=== PATIENT | male | born 1960 | race American Indian/Alaskan Native ===

== ENCOUNTER → 2017-08-15 | Outpatient (REF) | payer MEDICAID ==
[2017-08-15 20:24] LABS: COMPLEMENT C3 124 MG/DL (90-180); COMPLEMENT C4 23.9 MG/DL (10-40)
[2017-08-15 20:53] LABS: BACTERIA, URINE NONE SEEN; SQUAMOUS EPITHELIAL CELL URINE NONE SEEN /hpf (SMALL AMT); TRANSITIONAL EPI CELLS, URINE SMALL AMOUNT /hpf
[2017-08-15 20:54] LABS: MICROSCOPIC EXAM PERFORMED
[2017-08-17 13:05] LABS: HEPATITIS B SURFACE ANTIBODY NEGATIVE (POSITIVE)
[2017-08-19 00:08] LABS: HCV RNA NAA QUALITIATIVE Negative (Negative)
== END ==
LOC: M LAB REF 17:18
PROVIDERS: ATTEND Internal Medicine Nephrology
DX: I12.9 Hypertensive chronic kidney disease with stage 1 through stage 4 chronic kidney disease, or unspecified chronic kidney disease (principal); R31.9 Hematuria, unspecified; E11.22 Type 2 diabetes mellitus with diabetic chronic kidney disease; R80.9 Proteinuria, unspecified; N18.2 Chronic kidney disease, stage 2 (mild)

== ENCOUNTER → 2017-08-25 | Outpatient (CLI) | payer OTHER ==
--- NOTE | 2017-08-25 12:44 | REP ---
Urinary tract sonogram: History: Hematuria. Diabetes. Comparison: No comparison study. Findings: Scanning at the level of the urinary bladder shows no abnormality. Renal cortical echogenicity pattern is normal bilaterally and contours are smooth. There is a 1.4 cm cyst at the upper pole of the left kidney. Normal lobation is seen bilaterally. There is no other evidence of hydronephrosis, cyst, mass, or calculus in either kidney. The right kidney measures 15.5 x 6.0 x 6.8 cm. Left renal dimensions are 14.9 x 7.3 x 8.2 cm. Impression: Small cyst upper pole left kidney, otherwise normal urinary tract sonography. Signed by Francisco Zafar MD 08/25/2017 12:35 P
== END ==
LOC: M RAD 10:52
PROVIDERS: ATTEND Internal Medicine Nephrology
DX: R31.9 Hematuria, unspecified (principal); E11.9 Type 2 diabetes mellitus without complications; N18.9 Chronic kidney disease, unspecified

== ENCOUNTER → 2017-10-06 | Outpatient (REF) | payer OTHER, MEDICAID ==
[2017-10-07 14:21] LABS: TOTAL PROTEIN 5.8 GM/DL (6.4-8.2)
[2017-10-09 00:06] LABS: FREE KAPPA LIGHT CHAINS SERUM 62.2 mg/L (3.3-19.4); FREE LAMBDA LIGHT CHAINS SERUM 66.8 mg/L (5.7-26.3); KAPPA/LAMBDA RATIO SERUM 0.93 (0.26-1.65)
[2017-10-11 13:37] LABS: ALBUMIN % 51.6 % (55.8-66.1)
[2017-10-11 13:38] LABS: ALBUMIN 2.99 GM/DL (3.29-5.55); GAMMA GLOBULIN % 15.9 % (11.1-18.8)
== END ==
LOC: M LAB REF 13:05
PROVIDERS: ATTEND Internal Medicine Nephrology
DX: N18.2 Chronic kidney disease, stage 2 (mild) (principal); R80.9 Proteinuria, unspecified

== ENCOUNTER → 2017-11-07 | Outpatient (REF) | payer OTHER, MEDICAID | LOC: M LAB REF 12:55 | PROVIDERS: ATTEND Internal Medicine Nephrology | DX: R80.9 Proteinuria, unspecified (principal) ==